=== PATIENT | female | born 1995 | race Caucasian/White ===

== ENCOUNTER 2023-07-08 22:50 | Emergency (ER) | payer OTHER, SELFPAY ==
[2023-07-08 22:53] VITALS: BP 109/71
[2023-07-08 23:10] LABS: % Basophils 0.3 % (0-2); % Eosinophils 1.1 % (0-6); % Immature Granulocytes 0.3 % (0-0.5); % Monocytes 5.1 % (1.7-9.3); % Neutrophils 85.2 % (42.2-75.2); Absolute Eosinophils 0.1 10^3/uL (0-0.7); Absolute Lymphocytes 0.9 10^3/uL (1.2-3.4); Absolute Monocytes 0.6 10^3/uL (0.1-0.6); Absolute Neutrophils 9.9 10^3/uL (1.4-6.5); Hematocrit 42.5 % (37.0-47.0); Hemoglobin 15.6 g/dL (12.0-16.0); Mean Corp Hgb Conc. 36.7 g/dL (33.0-37.0); Mean Corpuscular Hgb 32.6 pg (27.0-31.0); Mean Corpuscular Volume 88.7 fL (81.0-99.0); Mean Platelet Volume 10.7 fL (7.4-10.4); Nucleated Red Blood Cells % 0 %; Platelet Count 176 10^3/uL (130-400); Red Blood Cell Count 4.79 10^6/uL (4.20-5.40); Red Cell Dist. Width 11.5 % (11.5-14.5); White Blood Cell Count 11.6 10^3/uL (4.8-10.8)
[2023-07-08 23:30] LABS: Lipase 51 U/L (23-300)
[2023-07-08 23:46] LABS: HCG, Serum Qualitative Screen Negative
[2023-07-09 02:12] VITALS: BMI 36.4
--- NOTE | 2023-07-09 02:23 | ED.GENMED ---
History of Present Illness
<Mabel Chua PA-C - Last Filed: 07/12/23 13:37>
General
Chief Complaint: Abdominal Symptoms
Source: patient
Exam Limitations: none
Time Seen by Provider: 07/09/23 02:01
Nursing documentation reviewed up to this point in time: agreed with
Travel History
Have you had any contact with someone who has COVID-19?: No
Do you have any symptoms of coronavirus? Fever > 100 degrees, chills, cough, shortness of breath, sore throat, loss of taste or smell, muscle aches, or headache?: No
History of Present Illness
History of Present Illness:
PT IS A 28 y/o F
with h/o HLD
here with n/v/d
started with dairrhea at noon and then that resolved after 1 dose imodium
then around 6 pm starte dwith N/V/D so frequently and voluminous
at one point pt looked glazed over while on the toilet but never lost consciousness
pt says she ate mac n cheese prepared at home by her mom earlier before symptoms started
no one else in the house is sick
no fever/chills
now feels dehydrated
vmoiting last was about 30 mn ago, 2 am
she probably vomited >15 times nd probably > 8times diarrhea
Past History
<Mabel Chua PA-C - Last Filed: 07/12/23 13:37>
Past History
ED Past Medical History: Hypercholesterolemia and Psychiatric (anxiety)
ED Past Surgical History: None
Social History
Tobacco: Former smoker
Alcohol: Occasional
Personal: Single
Living: alone
Review of Systems
<Mabel Chua PA-C - Last Filed: 07/12/23 13:37>
Review of Systems
Allergies reviewed?: Yes
All Other Systems: Not applicable
Phy Exam
<Mabel Chua PA-C - Last Filed: 07/12/23 13:37>
Physical Exam
Physical Exam:
GENERAL: Alert , in no apparent distress
EYE: pupils equal and reactive
NECK: Supple
ENT: o/p clr, dry mouth.
CARDIAC: Regular rate and rhythm .
LUNGS: Clear breath sounds bilaterally, no acute respiratory distress, no wheezes/rales/rhonchi
ABDOMEN: Soft, without focal tenderness, no r/g, no cvat, normal bowel sounds
NEUROLOGICAL: Alert and oriented, no focal neuro deficits
SKIN: Warm and dry, skin intact.
MUSCULOSKELETAL: No edema, well perfused. neg zita's sign
PSYCH: Normal and appropriate interaction.
Course
<Mabel Chua PA-C - Last Filed: 07/12/23 13:37>
Orders/Labs/Results
Orders:
Orders
07/08/23 22:58
Test Result ONCE
07/08/23 23:05
Complete Blood Count/No Diff Urgent
Complete Blood Count/With Diff Urgent
HCG, Serum Qualitative Screen Urgent
Lipase Urgent
07/09/23 02:22
0.9% Sodium Chloride 1000 ml [Nss] 1,000 ml IV BOLUS
Ondansetron Injectable [Zofran] 4 mg IV NOW STA
07/09/23 04:00
Comprehensive Metabolic Panel Urgent
Abnormal Lab Results
07/08/23 07/09/23
23:05 04:00
WBC 11.6 H 10^3/uL
(4.8-10.8)
MCH 32.6 H pg
(27.0-31.0)
MPV 10.7 H fL
(7.4-10.4)
Absolute Neuts (auto) 9.9 H 10^3/uL
(1.4-6.5)
Absolute Lymphs (auto) 0.9 L 10^3/uL
(1.2-3.4)
Neutrophils % 85.2 H %
(42.2-75.2)
Lymphocytes % 8.0 L %
(20.5-51.1)
BUN 19 H mg/dl
(7-17)
Glucose 126 H mg/dl
(70-99)
Total Bilirubin 1.7 H mg/dl
(0.2-1.3)
07/08/23 23:05
07/09/23 04:00
Vital Signs
Initial and Last Documented VS:
Initial Vital Signs
Temp Pulse Resp BP Pulse Ox
98.0 F 59 16 109/71 98
07/08/23 22:53 07/08/23 22:53 07/08/23 22:53 07/08/23 22:53 07/08/23 22:53
Last Documented Vital Signs
Temp Pulse Resp BP Pulse Ox
98.5 F 99 16 125/74 96
07/09/23 06:35 07/09/23 06:35 07/09/23 06:35 07/09/23 06:35 07/09/23 06:35
<Ene Bailey, DO - Last Filed: 07/09/23 07:35>
Orders/Labs/Results
Orders:
Orders
07/08/23 22:58
Test Result ONCE
07/08/23 23:05
Complete Blood Count/No Diff Urgent
Complete Blood Count/With Diff Urgent
HCG, Serum Qualitative Screen Urgent
Lipase Urgent
07/09/23 02:22
0.9% Sodium Chloride 1000 ml [Nss] 1,000 ml IV BOLUS
Ondansetron Injectable [Zofran] 4 mg IV NOW STA
07/09/23 04:00
Comprehensive Metabolic Panel Urgent
Abnormal Lab Results
07/08/23 07/09/23
23:05 04:00
WBC 11.6 H 10^3/uL
(4.8-10.8)
MCH 32.6 H pg
(27.0-31.0)
MPV 10.7 H fL
(7.4-10.4)
Absolute Neuts (auto) 9.9 H 10^3/uL
(1.4-6.5)
Absolute Lymphs (auto) 0.9 L 10^3/uL
(1.2-3.4)
Neutrophils % 85.2 H %
(42.2-75.2)
Lymphocytes % 8.0 L %
(20.5-51.1)
BUN 19 H mg/dl
(7-17)
Glucose 126 H mg/dl
(70-99)
Total Bilirubin 1.7 H mg/dl
(0.2-1.3)
07/08/23 23:05
07/09/23 04:00
Vital Signs
Initial and Last Documented VS:
Initial Vital Signs
Temp Pulse Resp BP Pulse Ox
98.0 F 59 16 109/71 98
07/08/23 22:53 07/08/23 22:53 07/08/23 22:53 07/08/23 22:53 07/08/23 22:53
Last Documented Vital Signs
Temp Pulse Resp BP Pulse Ox
98.5 F 99 16 125/74 96
07/09/23 06:35 07/09/23 06:35 07/09/23 06:35 07/09/23 06:35 07/09/23 06:35
<Mabel Chua PA-C - Last Filed: 07/12/23 13:37>
MDM/Problems Addressed
Differential Diagnosis Includes:
gastroenteritis, norovirus, dehydration
MDM/Problems Addressed:
28 y/o F
here with n/v/d since earlier today
no fever
near syncope while on the toilet, no LOC
no focal abd pain/tednerness
mucus membranes dry
abdomen nontender
will check electrolytes and hydrate, zofran
suspect viral cause
<Ene Bailey DO - Last Filed: 07/09/23 07:35>
*Pulse Oximetry
Patient hypoxic: no
*Critical Care Note
Total Time (30-74mins, 75-104mins- exclusive of procedures): Not Applicable
ED Attending Note
<Mabel Chua PA-C - Last Filed: 07/12/23 13:37>
-
Portions of this chart may have been created with voice recognition software.� Occasional wrong word or��sound alike� substitutions may have occurred due to the inherent limitations of voice recognition software.
<Ene Bailey DO - Last Filed: 07/09/23 07:35>
ED Attending Note
Patient seen and examined by attending physician: Yes
I performed the substantive portion of visit, reviewed & personally made and approve the management plan that is documented in note by myself or ELVIRA.: Yes
I performed a history and physical exam of patient and discussed management with resident, I reviewed resident's note and agree with documented findings and plan of care.: Yes
ED Attending Note:
Patient reassessed, feeling markedly improved after IV fluids and IV Zofran.
No further nausea or vomiting, continues to have no abdominal pain, no diarrhea.
She remains afebrile, abdomen is soft and nontender.
Tolerating sips of clear liquids.
Labs show mildly elevated white blood cell count, chemistries are unremarkable. Minimally elevated T. bili with normal LFTs. Likely reflecting fasting state. Her abdomen remains soft and nontender.
Will discharge to home with recommendations to limit her diet to clear liquids today, slowly advance as tolerated to soft foods tomorrow.
A prescription for Zofran ODT has been sent to her pharmacy.
Return precautions discussed.
Discharge Plan
Departure
Patient Disposition: Home (Routine Discharge)
Date of Disposition: 07/09/23
Time of Disposition: 06:15
Patient with high blood pressure during this ER visit?: No
Condition: Good
Discharge Problem:
Nausea vomiting and diarrhea
Instructions: Diarrhea in adolescents and adults, Nausea and Vomiting, Adult (DC)
Prescriptions:
New
ondansetron 4 mg tablet,disintegrating
4 mg PO Q8HPRN PRN (Reason: nausea and vomiting) Qty: 4 0RF
No Action
simvastatin 10 MG tablet
10 mg PO DAILY
hydrocodone-acetaminophen 1 TABLET tablet
1 - 2 tab PO Q4HPRN PRN (Reason: moderate to severe pain) Qty: 20 0RF
Referrals:
Osito Rivera MD [Family Provider] - Follow up in 2-3 days
Activity Restrictions/Additional Instructions:
YOU PROBABLY HAVE A VIRAL ILLNESS CAUSING THESE SYMPTOMS
TAKE ZOFRAN 4 MG EVERY 8 HOURS NEEDED FOR NAUSEA/VOMITING
SLOWLY ADVANCE YOUR FLUID INTKE AND ADD BLAND FOODS TOLERATAED
RETURN FOR: SEVERE DEHYDRATION, HIGH FEVER, WORSENING ABDOMINAL PAIN, BLOODY DIARRHEA OR ANY CONCERNS.
Interventions
Interventions:
*Risk Screen - Suicide Last Done: 07/09/23 02:12
*General Assessment Last Done: 07/09/23 02:12
*Neglect/Abuse Screening Last Done: 07/09/23 02:12
ED- Fall Risk Assessment Last Done: 07/09/23 02:12
*ED COVID-19 Vaccine History Last Done: 07/08/23 22:53
*Nursing Disposition Last Done: 07/09/23 06:35
DW-Oijqnq-Wquvfgugjs Assessment Last Done: 07/09/23 02:12
Discharge Date and Time
Discharge Date/Time: 07/09/23 06:35
Print Language: KENYAN
[2023-07-09 02:57] VITALS: BP 119/74
[2023-07-09] MEDS: ZOFRAN 4 MG IV (04:05)
[2023-07-09] MEDS: NSS 1000 IV (04:08)
[2023-07-09 04:37] LABS: ALT (SGPT) 25 U/L (0-35); AST (SGOT) 29 U/L (14-36); Albumin 4.6 g/dl (3.5-5.0); Alkaline Phosphatase 61 U/L (38-126); Blood Urea Nitrogen 19 mg/dl (7-17); Calcium 9.1 mg/dl (8.4-10.2); Carbon Dioxide 22 mmol/L (22-30); Chloride 106 mmol/L (98-107); Estimated Creatinine Clearance 109 ml/min; Glucose 126 mg/dl (70-99); Potassium 4.7 mmol/L (3.5-5.1); Sodium 138 mmol/L (135-145); Total Bilirubin 1.7 mg/dl (0.2-1.3); Total Protein 7.3 g/dl (6.3-8.2); eGFR > 60.00
[2023-07-09 06:35] VITALS: BP 125/74
== END 2023-07-09 06:35 | disposition home or self-care (01) ==
LOC: EMR 22:50
PROVIDERS: Emergency Medicine; Physician Assistant; EMERGENCY PHYSICIAN Emergency Medicine; FAMILY PHYSICIAN Internal Medicine
DX: R11.2 Nausea with vomiting, unspecified (principal); R19.7 Diarrhea, unspecified; R55 Syncope and collapse; D72.829 Elevated white blood cell count, unspecified
CPT/HCPCS: 99284; 96374; 96361; 80053; 83690; 84703; 85025; 85027

== ENCOUNTER 2024-01-19 02:55 | Emergency (ER) | payer OTHER, SELFPAY ==
[2024-01-19 03:03] VITALS: BP 136/84
[2024-01-19 03:13] VITALS: BMI 29.2
--- NOTE | 2024-01-19 03:48 | ED.GENMED ---
History of Present Illness
<Felix Larios MD, Resident - Last Filed: 01/19/24 06:05>
General
Chief Complaint: Heart Rate Problem
Source: patient
Time Seen by Provider: 01/19/24 03:17
Travel History
Have you traveled to any high risk areas for coronavirus over the past 14 days?: No
Have you had any contact with someone who has COVID-19?: No
Do you have any symptoms of coronavirus? Fever > 100 degrees, chills, cough, shortness of breath, sore throat, loss of taste or smell, muscle aches, or headache?: No
History of Present Illness
History of Present Illness:
Luz Maria Sharma, 28-year-old female, has had palpitations and lightheadedness for the past few hours. She has had a similar episode a few years ago, and was on cardiac monitoring for 2 days - results were unremarkable. Also notes mild tingling in
extremities. Denies chest pain, tightness, shortness of breath, weakness, fatigue, fever, night sweats, chills or blurry vision. No recent illnesses, immunizations or changes to her health. Only on simvastatin and control.
Past History
<Felix Larios MD, Resident - Last Filed: 01/19/24 06:05>
Past History
ED Past Medical History: Hypercholesterolemia and Psychiatric (anxiety)
ED Past Surgical History: None
Social History
Tobacco: Former smoker
Alcohol: Occasional
Personal: Single
Living: alone
Review of Systems
<Felix Larios MD, Resident - Last Filed: 01/19/24 06:05>
Review of Systems
All Other Systems: ROS reviewed and negative except as documented in HPI and ROS
Phy Exam
<Felix Larios MD, Resident - Last Filed: 01/19/24 06:05>
General Physical Exam
General Presentation: well appearing and no apparent distress
General Skin: warm and dry
General Habitus: normal
General Mental: alert
General Hydration: appears well hydrated
ENT Exam
ENT Exam: EOMI, pharynx normal, neck supple and normocephalic
Eye Exam
Eye Exam: PERRL, cornea clear and conjunctiva normal
Cardiovascular Exam
Cardiovascular Exam: regular rate/rhythm, no edema, no murmur, normal peripheral pulses and tachycardia
Pulmonary Exam
Pulmonary Exam: lungs clear, no respiratory distress, no rales, no crackles, no rhonchi, no stridor, no wheezing and no cough
Gastrointestinal Exam
Gastrointestinal Exam: normal bowel sounds, non tender, soft, no organomegaly, no pulsatile mass and non distended
Neurological Exam
Neurological Exam: alert, oriented x3, no motor deficits and speech normal
Musculoskeletal Exam
Musculoskeletal Exam: full ROM and no edema
Skin Exam
Skin Exam: normal color, warm/dry, no rash and no petechia
Psychiatric Exam
Psychiatric Exam: normal mood/affect
Course
<Felix Larios MD, Resident - Last Filed: 01/19/24 06:05>
Orders/Labs/Results
Orders:
Orders
01/19/24 02:55
ECG [Electrocardiogram (*1)] Urgent
Reason for Study: Tachycardia
EKG- Treatment ONCE
01/19/24 03:46
0.9% Sodium Chloride 500 ml [Nss] 500 ml IV BOLUS
Test Result ONCE
01/19/24 04:07
Complete Blood Count/No Diff Urgent
Free T4 Urgent
TSH Reflex To Free T4 Urgent
01/19/24 04:48
Comprehensive Metabolic Panel Urgent
HCG, Serum Qualitative Screen Urgent
Abnormal Lab Results
01/19/24 01/19/24
04:07 04:48
RBC 4.00 L 10^6/uL
(4.20-5.40)
Hct 35.2 L %
(37.0-47.0)
MCH 32.5 H pg
(27.0-31.0)
RDW 11.3 L %
(11.5-14.5)
MPV 11.2 H fL
(7.4-10.4)
Chloride 108 H mmol/L
(98-107)
Carbon Dioxide 18 L mmol/L
(22-30)
Glucose 111 H mg/dl
(70-99)
Total Protein 6.1 L g/dl
(6.3-8.2)
TSH (Reflex) 5.53 H uIU/ml
(0.47-4.68)
01/19/24 04:07
01/19/24 04:48
Vital Signs
Initial and Last Documented VS:
Initial Vital Signs
Temp Pulse Resp BP Pulse Ox
36.7 C 104 24 136/84 100
01/19/24 03:03 01/19/24 03:03 01/19/24 03:03 01/19/24 03:03 01/19/24 03:03
Last Documented Vital Signs
Temp Pulse Resp BP Pulse Ox
36.7 C 91 21 104/60 96
01/19/24 03:03 01/19/24 05:47 01/19/24 05:47 01/19/24 05:47 01/19/24 05:47
<Todd Cabrera MD - Last Filed: 01/19/24 07:19>
Orders/Labs/Results
Orders:
Orders
01/19/24 02:55
ECG [Electrocardiogram (*1)] Urgent
Reason for Study: Tachycardia
EKG- Treatment ONCE
01/19/24 03:46
0.9% Sodium Chloride 500 ml [Nss] 500 ml IV BOLUS
Test Result ONCE
01/19/24 04:07
Complete Blood Count/No Diff Urgent
Free T4 Urgent
TSH Reflex To Free T4 Urgent
01/19/24 04:48
Comprehensive Metabolic Panel Urgent
HCG, Serum Qualitative Screen Urgent
Abnormal Lab Results
01/19/24 01/19/24
04:07 04:48
RBC 4.00 L 10^6/uL
(4.20-5.40)
Hct 35.2 L %
(37.0-47.0)
MCH 32.5 H pg
(27.0-31.0)
RDW 11.3 L %
(11.5-14.5)
MPV 11.2 H fL
(7.4-10.4)
Chloride 108 H mmol/L
(98-107)
Carbon Dioxide 18 L mmol/L
(22-30)
Glucose 111 H mg/dl
(70-99)
Total Protein 6.1 L g/dl
(6.3-8.2)
TSH (Reflex) 5.53 H uIU/ml
(0.47-4.68)
01/19/24 04:07
01/19/24 04:48
Vital Signs
Initial and Last Documented VS:
Initial Vital Signs
Temp Pulse Resp BP Pulse Ox
36.7 C 104 24 136/84 100
01/19/24 03:03 01/19/24 03:03 01/19/24 03:03 01/19/24 03:03 01/19/24 03:03
Last Documented Vital Signs
Temp Pulse Resp BP Pulse Ox
36.7 C 91 21 104/60 96
01/19/24 03:03 01/19/24 05:47 01/19/24 05:47 01/19/24 05:47 01/19/24 05:47
<Felix Larios MD, Resident - Last Filed: 01/19/24 06:05>
MDM/Problems Addressed
Differential Diagnosis Includes:
Sinus tachycardia; dehydration; hyperthyroidism
MDM/Problems Addressed:
Heart rate improved post IV fluids. TSH mildly elevated, would be inconsistent with hyperthyroidism. Recommended to follow-up with primary outpatient. Patient agrees and okay to be discharged.
<Felix Larios MD, Resident - Last Filed: 01/19/24 06:05>
*Critical Care Note
Total Time (30-74mins, 75-104mins- exclusive of procedures): Not Applicable
ED Attending Note
<Felix Larios MD, Resident - Last Filed: 01/19/24 06:05>
-
Portions of this chart may have been created with voice recognition software.� Occasional wrong word or��sound alike� substitutions may have occurred due to the inherent limitations of voice recognition software.
<Todd Cabrera MD - Last Filed: 01/19/24 07:19>
ED Attending Note
Patient seen and examined by attending physician: Yes
I performed a history and physical exam of patient and discussed management with resident, I reviewed resident's note and agree with documented findings and plan of care.: Yes
ED Attending Note:
I have seen and evaluated the patient with a [id number] encounter. I have spoken to the resident and involved in the medical history, the physical exam, medical decision making.
Evaluation and management service: agree unless noted differently below.
Results interpretation: agree unless noted differently below.
Focused HPI: 28-year-old female with history of hyperlipidemia presents to the emergency room for palpitations. Patient reports that she had some wine tonight and then went home. While she was resting she began to feel palpitations and became very
anxious. She says that her Apple Watch told her that she was tachycardic. Came to the emergency room for assessment. Denies any chest pain or shortness of breath. She denies any other complaints. She says she has had issues with palpitations
and tachycardia in the past. She says that she saw cardiology in [place] ([facility] cardiology) and had 48-hour Holter monitor and EKGs and was told that these were reassuring.
Physical exam: Awake alert, mildly anxious but not in distress. Tachycardic but otherwise normal vitals. Mucous membranes slightly dry. No cardiac rubs gallops or murmurs. Lungs clear to auscultation bilaterally. Extremities warm and
well-perfused.
Medical Decision Makin-year-old presents with palpitations and tachycardia. No chest pain or shortness of breath. Was drinking a bit tonight. Vitals and exam as above. Labs sent off including a CBC and a CMP which were essentially
unremarkable. Thyroid studies sent off TSH mildly high free T4 normal. EKG shows sinus rhythm with no ectopy, no delta wave, no signs of Brugada. Normal QTc. She was given fluids here and heart rate normalized. She is feeling bit better. Low
suspicion for emergent pathology at this point, stable for discharge, follow-up with PCP.
Discharge Plan
Departure
Patient Disposition: Home (Routine Discharge)
Date of Disposition: 01/19/24
Time of Disposition: 05:48
Patient with high blood pressure during this ER visit?: No
Discharge Problem:
Tachycardia, Dehydration
Instructions: Sinus Tachycardia (DC), Dehydration, Adult ED
Prescriptions:
No Action
simvastatin 10 MG tablet
10 mg PO DAILY
Patient Comments:
'I take this 4 times a week.'
Referrals:
Saeid Peters DO [Family Provider] -
Activity Restrictions/Additional Instructions:
Thank you for visiting the Emergency Department at [facility].
1. Please schedule a follow up appointment as directed. Call first thing tomorrow morning to make an appointment.
2. If indicated, please take your medications as instructed and indicated on discharge paperwork.
3. If any of your symptoms do not improve, or persist, or become more severe within 6-12 hours, please return to the emergency department for further care.
4. Please return to the emergency department if you develop a headache, neck pain/stiffness, fever greater than 100.4F, chest pain, shortness of breath, persistent nausea, vomiting, slurred speech, difficulty walking, numbness/tingling, weakness,
signs of infection or any other symptoms that are worrisome to you.
Please call [phone] if you have any questions.
Interventions
Interventions:
*Risk Screen - Suicide Last Done: 01/19/24 03:03
*General Assessment Last Done: 01/19/24 03:19
*Neglect/Abuse Screening Last Done: 01/19/24 03:03
ED- Fall Risk Assessment Last Done: 01/19/24 03:40
*ED COVID-19 Vaccine History Last Done: 01/19/24 03:19
*Nursing Disposition Last Done: 01/19/24 06:05
ED- Cardiac Assessment Last Done: 01/19/24 03:40
ED-Psychological Assessment Last Done: 01/19/24 03:40
ED- Pulmonary Assessment Last Done: 01/19/24 03:40
Discharge Date and Time
Discharge Date/Time: 01/19/24 06:05
Print Language: TAJIK
[2024-01-19] MEDS: NSS 500 IV (04:06)
[2024-01-19 04:22] LABS: Hematocrit 35.2 % (37.0-47.0); Mean Corp Hgb Conc. 36.9 g/dL (33.0-37.0); Mean Corpuscular Hgb 32.5 pg (27.0-31.0); Mean Platelet Volume 11.2 fL (7.4-10.4); Platelet Count 188 10^3/uL (130-400); Red Cell Dist. Width 11.3 % (11.5-14.5); White Blood Cell Count 8.2 10^3/uL (4.8-10.8)
[2024-01-19 05:12] LABS: HCG, Serum Qualitative Screen Negative
[2024-01-19 05:18] LABS: TSH Reflex To Free T4 5.53 uIU/ml (0.47-4.68)
[2024-01-19 05:25] LABS: ALT (SGPT) 20 U/L (0-35); AST (SGOT) 21 U/L (14-36); Albumin 3.9 g/dl (3.5-5.0); Alkaline Phosphatase 47 U/L (38-126); Blood Urea Nitrogen 8 mg/dl (7-17); Calcium 8.9 mg/dl (8.4-10.2); Carbon Dioxide 18 mmol/L (22-30); Chloride 108 mmol/L (98-107); Estimated Creatinine Clearance 118 ml/min; Glucose 111 mg/dl (70-99); Potassium 3.7 mmol/L (3.5-5.1); Sodium 141 mmol/L (135-145); Total Bilirubin 0.8 mg/dl (0.2-1.3); Total Protein 6.1 g/dl (6.3-8.2); eGFR > 60.00
[2024-01-19 05:47] VITALS: BP 104/60
[2024-01-19 05:47] LABS: Free T4 1.02 ng/dl (0.78-2.19)
== END 2024-01-19 06:05 | disposition home or self-care (01) ==
LOC: EMR 02:55
PROVIDERS: EMERGENCY PHYSICIAN Emergency Medicine; FAMILY PHYSICIAN Family Medicine
DX: R00.0 Tachycardia, unspecified (principal); R42 Dizziness and giddiness; R20.2 Paresthesia of skin; E86.0 Dehydration; E78.00 Pure hypercholesterolemia, unspecified; F41.9 Anxiety disorder, unspecified; Z87.891 Personal history of nicotine dependence
CPT/HCPCS: 99284; 96360; 71275; 80053; 84439; 84443; 84703; 85027; 87502; 87811; 93005; Q9967

== ENCOUNTER 2024-01-19 08:14 | Emergency (ER) | payer OTHER, SELFPAY ==
[2024-01-19] VITALS (8 sets, daily range): BP systolic 106–139; BP diastolic 64–86; PULSE 99–115
--- NOTE | 2024-01-19 09:07 | ED.GENMED ---
History of Present Illness
General
Chief Complaint: Heart Rate Problem
Source: patient
Exam Limitations: none
Time Seen by Provider: 01/19/24 08:31
Nursing documentation reviewed up to this point in time: agreed with
History of Present Illness
History of Present Illness:
28 yr old female presents to the ER for evaluation. Patient was just seen a couple hours ago around 3 AM this morning for tachycardia. She started with tachycardia(felt palpiations) last night and felt lightheaded last night. During ER visit
several hours ago she had blood work which was unremarkable TSH was minimally elevated not consistent with hyperthyroidism) and she was given fluids and discharged home. She reports she got home went to sleep and got up but fell to the ground
because she was dizzy .she denied any actual syncopal episode when she got up and she consistently still feels palpitations. She complained of chest discomfort to the nurse however to me she reports that she feels like her heart is going to beat
out of her chest. She denies any shortness of breath. She is on control she does not smoke. She is adopted and does not know her family history. She denies any history of DVT PE.
Patient reports she had palpitations 2 years ago and was evaluated by cardiology and did wear Holter monitor which was negative at that time.
She has had mild viral symptoms including sore throat headache.
Pt very anxious and tearful on arrival. She does have history of anxiety but does not feel anxious over anything particular except the situation.
Past History
Past History
ED Past Medical History: Hypercholesterolemia and Psychiatric (anxiety)
ED Past Surgical History: None
Social History
Tobacco: Former smoker
Alcohol: Occasional
Personal: Single
Living: alone
Review of Systems
Review of Systems
Allergies reviewed?: Yes
All Other Systems: ROS reviewed and negative except as documented in HPI and ROS
Constitutional: Reports no symptoms
Respiratory: Reports no symptoms; Denies trouble breathing
Cardiac: Reports palpitations; Denies chest pain, diaphoresis or syncope
ABD/GI: Reports no symptoms
: Reports no symptoms
Musculoskeletal: Reports no symptoms
Skin: Reports no symptoms
Neurological: Reports no symptoms
Psychiatric: Reports no symptoms
Phy Exam
General Physical Exam
General Presentation: no apparent distress
General age: appears stated age
General Skin: warm and dry
General Habitus: normal
General Mental: alert
General Hydration: appears well hydrated
Cardiovascular Exam
Cardiovascular Exam: no murmur and tachycardia
Pulmonary Exam
Pulmonary Exam: lungs clear and no respiratory distress
Neurological Exam
Neurological Exam: alert and oriented x3
Musculoskeletal Exam
Musculoskeletal Exam: full ROM
Skin Exam
Skin Exam: normal color and warm/dry
Psychiatric Exam
Psychiatric Exam: normal mood/affect
Course
Orders/Labs/Results
Orders:
Orders
01/19/24 08:15
Electrocardiogram (*1) Urgent
Reason for Study: Palpitations
EKG- Treatment ONCE
01/19/24 09:20
CT Chest Pe Study Urgent
Comment:
Reason For Exam: tachycardia/pain
0.9% Sodium Chloride 1000 ml [Nss] 1,000 ml IV BOLUS
01/19/24 10:34
Orthostatic VS- Treatment ONCE
01/19/24 12:33
COVID-19 Antigen Urgent
Source: Nasal Swab
Influenza A+B Rapid Molecular Urgent
NICKIE Source: Nasal Swab
Specimen Description:
Vital Signs
Initial and Last Documented VS:
Initial Vital Signs
Temp Pulse Resp BP Pulse Ox
99.4 F 110 16 139/73 99
01/19/24 08:18 01/19/24 08:18 01/19/24 08:18 01/19/24 08:18 01/19/24 08:18
Last Documented Vital Signs
Temp Pulse Resp BP Pulse Ox
99.4 F 100 16 117/74 98
01/19/24 08:18 01/19/24 12:00 01/19/24 12:00 01/19/24 12:00 01/19/24 10:38
Lawyer Criminal consulted with Physician
Lawyer Criminal consulted with physician?: Yes
Name of Physician Consulted: carlitos
MDM/Problems Addressed
Differential Diagnosis Includes:
not limited to: tachycardia dehydration
MDM/Problems Addressed:
28-year-old female presents back to the ER for evaluation for persistent tachycardia. She was here for a full workup earlier this morning hydrated and discharged home. Patient presents back with tachycardia and reports she feels palpitations and
fell this morning because of the palpitations though she denies any syncopal episode. With persistent tachycardia though no shortness of breath CAT scan was done and negative for PE. Patient is very anxious she does have history anxiety. She also
complains of some viral symptoms recently. Patient was hydrated here heart rate has improved she complains of viral syndrome however COVID and flu are negative. No other acute findings on EKG patient had a full cardiology workup with Holter
monitor 2 years ago will DC back to her processing tech with close outpatient follow-up however patient stable for discharge home. Not limited to tachycardia
*Radiology
Radiology exam reviewed: radiology read reviewed
*Pulse Oximetry
Patient hypoxic: no
*EKG
Interpreted by ED Provider?: Yes
Heart Rate: 107
Rate: tachycardiac
Rhythm: sinus tachycardia
*Critical Care Note
Total Time (30-74mins, 75-104mins- exclusive of procedures): Not Applicable
ED Attending Note
-
Portions of this chart may have been created with voice recognition software.� Occasional wrong word or��sound alike� substitutions may have occurred due to the inherent limitations of voice recognition software.
Discharge Plan
Departure
Patient Disposition: Home (Routine Discharge)
Date of Disposition: 01/19/24
Time of Disposition: 13:28
Patient with high blood pressure during this ER visit?: No
Covid-19: Not Applicable
Discharge Problem:
Tachycardia
Instructions: Palpitations (DC), BLOOD PRESSURE
Prescriptions:
No Action
simvastatin 10 MG tablet
10 mg PO DAILY
Patient Comments:
'I take this 4 times a week.'
Referrals:
Saeid Peters, [Family Provider] -
Activity Restrictions/Additional Instructions:
As discussed stay well-hydrated. Follow-up with family doctor the next 4 days as well as your processing tech. Please call tomorrow to make an appointment as soon as possible.
return if any worsening of symptoms.
Interventions
Interventions:
*Risk Screen - Suicide Last Done: 01/19/24 08:18
*General Assessment Last Done: 01/19/24 08:18
*Neglect/Abuse Screening Last Done: 01/19/24 08:18
ED- Fall Risk Assessment Last Done: 01/19/24 09:50
*ED COVID-19 Vaccine History Last Done: 01/19/24 08:18
ED- Cardiac Assessment Last Done: 01/19/24 09:50
ED- Pulmonary Assessment Last Done: 01/19/24 09:50
Discharge Date and Time
Print Language: DIVEHI
[2024-01-19] MEDS: NSS 1000 IV (09:44)
[2024-01-19 13:11] LABS: COVID-19 Antigen Negative (Negative)
== END 2024-01-19 13:44 | disposition home or self-care (01) ==
LOC: EMR 08:14
PROVIDERS: Nurse Practitioner; EMERGENCY PHYSICIAN Emergency Medicine; FAMILY PHYSICIAN Family Medicine
DX: R00.0 Tachycardia, unspecified (principal); R42 Dizziness and giddiness; W19.XXXA Unspecified fall, initial encounter; Y92.009 Unspecified place in unspecified non-institutional (private) residence as the place of occurrence of the external cause; Z11.52 Encounter for screening for COVID-19; F41.9 Anxiety disorder, unspecified; E78.00 Pure hypercholesterolemia, unspecified; Z79.3 Long term (current) use of hormonal contraceptives; Z87.891 Personal history of nicotine dependence
CPT/HCPCS: 99285; 96360; 71275; 87502; 87811; 93005; Q9967

== ENCOUNTER 2024-02-20 01:18 | Emergency (ER) | payer OTHER, SELFPAY ==
[2024-02-20 01:21] VITALS: BP 142/99
[2024-02-20 01:37] VITALS: BMI 30.2
[2024-02-20 01:42] VITALS: BP 107/86
--- NOTE | 2024-02-20 01:42 | ED.GENMED ---
History of Present Illness
General
Chief Complaint: Heart Rate Problem
Source: patient, family (Mother who is at bedside) and previous hospital records (ED visit for very similar complaint x 2 on January 18. Unremarkable evaluations on both visits including unremarkable CTA of the chest)
Exam Limitations: none
Time Seen by Provider: 02/20/24 01:29
Nursing documentation reviewed up to this point in time: agreed with
History of Present Illness
History of Present Illness:
This is a 29-year-old woman who has history of hyperlipidemia, anxiety who presents with complaints of palpitations, racing heart that has been an ongoing issue over the past month. Presented to this ED twice on the same day, January 18 with
similar complaints of palpitations accompanied with some lightheadedness. During those ED visits laboratory studies were unremarkable save for minimally elevated TSH with normal free T4. CTA of the chest was negative for PE. She felt improved
with some IV fluids.
She has since followed up with cardiology, [facility] cardiology and [place] and is scheduled for Holter monitor which is scheduled to be placed next week.
Cardiology is considering initiation of a beta-selena but holding off until Holter monitor completed.
Patient admits that palpitations are more noticeable when she is lying or sitting, more so at nighttime. She does not notice palpitations with activity, no shortness of breath, no chest pain nor tightness, no weakness nor fatigue, no fever, no
diaphoresis, no headache. No recent illness. She has been avoiding caffeinated beverages. She denies alcohol nor drug use. Lifelong non-smoker.
No recent travel. She denies leg pain or swelling.
Tonight she complained of palpitations and according to mom pulse ox was reading heart rate of 140, improved to 120 [address] route to the hospital.
Patient notes similar palpitations a few years ago with reported unremarkable cardiac evaluation at that time including unremarkable hose maker.
Past History
Past History
ED Past Medical History: Hypercholesterolemia and Psychiatric (anxiety)
ED Past Surgical History: Cholecystectomy
Social History
Tobacco: Former smoker
Alcohol: Occasional
Drug: None
Personal: Single
Living: with family
Employment: Employed
Family History
Family History: Other (Noncontributory)
Phy Exam
Physical Exam
Physical Exam:
GENERAL: 29-year-old woman appears somewhat younger than stated age. Awake and alert, mildly anxious, easily communicative. Mother is accompanying.
EYE: anicteric
NECK: Supple, nontender, no meningismus, no significant adenopathy. No JVD.
ENT: oral mucosa is moist. No rhinorrhea.
CARDIAC: Regular rhythm, mildly tachycardic. no murmur. No rub.
LUNGS: Clear breath sounds bilaterally, no acute respiratory distress, no wheezes/rales/rhonchi
ABDOMEN: Soft, nondistended, without focal tenderness, normoactive BS.
NEUROLOGICAL: Alert and oriented x3, no focal neuro deficits. Gait is anglin and steady.
SKIN: Warm and dry, normal color, skin intact. No rash.
MUSCULOSKELETAL: No C/C/E. peripheral pulses are full and equal b/l. No palpable tenderness.
PSYCH: Normal and appropriate interaction.
Course
Orders/Labs/Results
Orders:
Orders
02/20/24 01:27
EKG [Electrocardiogram (*1)] Urgent
Reason for Study: Tachycardia
EKG- Treatment ONCE
02/20/24 01:37
BMP [Basic Metabolic Panel] Urgent
Free T4 Urgent
TSH Reflex To Free T4 Urgent
02/20/24 01:52
0.9% Sodium Chloride 500 ml [Nss] 500 ml IV BOLUS
Abnormal Lab Results
02/20/24
01:37
Carbon Dioxide 19 L mmol/L
(22-30)
Glucose 120 H mg/dl
(70-99)
TSH (Reflex) 4.74 H uIU/ml
(0.47-4.68)
02/20/24 01:27
02/20/24 01:37
Vital Signs
Initial and Last Documented VS:
Initial Vital Signs
Temp Pulse Resp BP Pulse Ox
98.7 F 114 20 142/99 99
02/20/24 01:21 02/20/24 01:21 02/20/24 01:21 02/20/24 01:21 02/20/24 01:21
Last Documented Vital Signs
Temp Pulse Resp BP Pulse Ox
98.7 F 92 21 107/77 97
02/20/24 01:21 02/20/24 03:00 02/20/24 03:00 02/20/24 03:00 02/20/24 03:00
MDM/Problems Addressed
Differential Diagnosis Includes:
Concern for tacky arrhythmia, recurrent sinus tachycardia. Concern for thyroid disorder, electrolyte abnormality.
EKG shows sinus tachycardia at 101 otherwise unremarkable, similar and unchanged from EKG January 18.
Monitor shows mild sinus tachycardia.
She remains hemodynamically stable.
Previous labs, EKG, imaging reviewed from ED visits x 2 January 18.
Will recheck TSH assess for potential thyroid disorder. Will check electrolytes.
Will continue hose maker.
Patient has had some symptomatic improvement with IV fluids on previous visit thus will give small IV bolus of normal saline and continue hose maker.
Ultimately will require follow-up with farmworker poultry and planned Holter monitor.
Chronic conditions affecting care: Psychiatric illness (History of anxiety)
*Pulse Oximetry
Patient hypoxic: no
*EKG
Interpreted by ED Provider?: Yes
Comparison EKG: no changes (Unchanged from previous January 19, 2024)
Heart Rate: 101
Rate: tachycardiac
Rhythm: sinus
Gravel Switch: normal axis
Interval: normal interval
QRS Pattern: normal QRS
Ischemia: no ischemia
*Creative Producer Interpretation
Rate: tachycardiac
Interpretation: abnormal
Rhythm: sinus
*Critical Care Note
Total Time (30-74mins, 75-104mins- exclusive of procedures): Not Applicable
Update Note
Update Note:
02/20/2024 0320 AM
Patient resting comfortably, feeling improved with heart rate improved to normal sinus rhythm in the 80s.
Labs are unremarkable with minimally low CO2 but improved from previous. TSH again very minimally elevated but improved from 1 month ago and again with normal free T4.
Will discharge to home with recommendations to follow-up with her farmworker poultry.
Recommend trial of increasing clear liquids, drinking water if episodes of palpitations, racing heart develop in the future.
Continue to avoid caffeinated beverages, avoid chocolate as well as alcoholic beverages.
ED Attending Note
-
Portions of this chart may have been created with voice recognition software.� Occasional wrong word or��sound alike� substitutions may have occurred due to the inherent limitations of voice recognition software.
Discharge Plan
Departure
Patient Disposition: Home (Routine Discharge)
Date of Disposition: 02/20/24
Time of Disposition: 03:21
Patient with high blood pressure during this ER visit?: No
Condition: Good
Discharge Problem:
Heart palpitations, Sinus tachycardia
Instructions: Palpitations (DC)
Prescriptions:
No Action
simvastatin 10 MG tablet
10 mg PO DAILY
Patient Comments:
'I take this 4 times a week.'
Referrals:
Osito Rivera MD [Family Provider] -
Activity Restrictions/Additional Instructions:
Stay well-hydrated on a daily basis.
Continue to avoid caffeinated beverages, avoid alcoholic beverages and avoid chocolate as well.
Follow-up with your farmworker poultry for further evaluation.
Interventions
Interventions:
*Risk Screen - Suicide Last Done: 02/20/24 01:21
*General Assessment Last Done: 02/20/24 01:47
*Neglect/Abuse Screening Last Done: 02/20/24 01:21
*ED COVID-19 Vaccine History Last Done: 02/20/24 01:21
ED- Cardiac Assessment Last Done: 02/20/24 01:37
ED- Pulmonary Assessment Last Done: 02/20/24 01:37
Discharge Date and Time
Print Language: SAMI
[2024-02-20 02:00] VITALS: BP 113/85
[2024-02-20] MEDS: NSS 500 IV (02:02)
[2024-02-20 02:09] LABS: Blood Urea Nitrogen 11 mg/dl (7-17); Calcium 9.4 mg/dl (8.4-10.2); Carbon Dioxide 19 mmol/L (22-30); Chloride 106 mmol/L (98-107); Estimated Creatinine Clearance 119 ml/min; Glucose 120 mg/dl (70-99); Potassium 3.7 mmol/L (3.5-5.1); Sodium 141 mmol/L (135-145); eGFR > 60.00
[2024-02-20 02:40] LABS: TSH Reflex To Free T4 4.74 uIU/ml (0.47-4.68)
[2024-02-20 03:00] VITALS: BP 107/77
[2024-02-20 03:10] LABS: Free T4 1.19 ng/dl (0.78-2.19)
== END 2024-02-20 03:42 | disposition home or self-care (01) ==
LOC: EMR 01:18
PROVIDERS: EMERGENCY PHYSICIAN Emergency Medicine; FAMILY PHYSICIAN Internal Medicine
DX: R00.2 Palpitations (principal); R00.0 Tachycardia, unspecified; E78.00 Pure hypercholesterolemia, unspecified; Z90.49 Acquired absence of other specified parts of digestive tract
CPT/HCPCS: 99284; 80048; 84439; 84443; 93005